=== PATIENT | female | born 1995 | race Caucasian/White ===

== ENCOUNTER 2018-04-02 15:38 | Emergency (ER) | payer MEDICAID, OTHER ==
[~2018-04-02] VITALS: Ht 162.6 cm; Wt 53.0 kg
[2018-04-02] MEDS ORDERED: KETOROLAC 60MG/2ML VIAL IM ONE (17:45)
[2018-04-02 18:06] VITALS: BP 145/92
== END 2018-04-02 18:07 | disposition home or self-care (01) ==
LOC: ER 15:38
DX: R51 Headache (principal)
CPT/HCPCS: 81025; 96372; 99283; J1885